=== PATIENT | male | born 1965 | race African-American/Black ===

== ENCOUNTER 2019-04-03 23:04 | Emergency (ER) | payer OTHER ==
[2019-04-03 23:23] VITALS: BP 152/71; PULSE 74; TEMP 98.7; BMI 38.9
[2019-04-03] MEDS ORDERED: DIPHTH,PERTUSS(ACELL),TET 0.5 ML DISP.SYRIN IM ONE (23:41)
[2019-04-03] MEDS ORDERED: CLINDAMYCIN HCL 150 MG CAPSULE (FP) PO ONE (23:56)
--- NOTE | 2019-04-04 00:16 | PDOC ---
History of Present Illness - General Chief Complaint: Wound Stated Complaint: LACERATION ON LT. LEG Time Seen by Provider: 04/03/19 23:25 History Source: Patient Exam Limitations: No Limitations - History of Present Illness Initial Comments: HPI: 53 y/o male presenting to [facility] ER complaining of laceration to left leg sustained while cutting drywall with metal insert. Did not seek medical evaluation. Attempted to keep the wound clean with bandages and neosporin. Scab was dislodged yesterday and purulent material was expressed. Pt endorses redness surrounding the area without streaking. Denies fevers, chills, or difficulty moving the extremity. Medical Hx: - HTN - HLD Review of Systems: In addition to that documented in the HPI above, the additional ROS was obtained : Constitutional: Denies fevers or chills ENMT: Denies sore throat CV: Denies chest pain Resp: Denies SOB GI: Denies vomiting or diarrhea Trauma: Per HPI Physical Examination: Constitutional: Well-developed, well-nourished adult male in no acute distress or obvious discomfort. Found semi-fowlers on hospital bed. Alert and oriented x4. Answered all questions appropriately and completely. Speech was non-labored , non-pressured. Head: Normocephalic. No obvious external signs of trauma. Cardiovascular / Chest: Regular rate and regular rhythm. No murmur, rubs, clicks , or gallops. Peripheral pulses: radial pulses full. Respiratory: Breathing unlabored. Equal chest rise and fall. Clear to auscultation bilaterally. No stridor, no wheezing, no rhonchi. Neuro: Alert and oriented. Moving all four extremities spontaneously. Gait normal. Skin: Approx. 3cm partial thickness laceration to medial aspect of left leg with small amount of devitalized tissue. No purulent discharge expressed. Erythema with warmth surrounding the wound without lymphatic streaking. No fluctuation or induration. Psych: Affect: appropriate. Mood: normal. MDM: *Reviewed vital signs, nursing notes, and prior visit documentation (if available). 53 y/o male presenting almost two weeks s/p laceration to left leg. Wound expressed possible purulent discharge yesterday. Denies systemic infectious symptoms. Not a diabetic. No h/o of poor wound healing. Afebrile. Vitals unremarkable for hypotension or tachycardia. Physical exam as described above. Suspect localized cellulitis without abscess. Plain films unremarkable for foreign body per ED wet read. Radiology report to follow. Devitalized tissue trimmed and wound irrigated. Covered with clean and dry dressing. Prescribed 10 day course of clindamycin. First dose given in ED. Instructed to f/u with Dr. Grayson in clinic. Discussed imaging and laboratory results with pt. Answered all questions. Provided return precautions. Pt expressed verbal understanding and agreement with plan to discharge home with outpatient follow up. Jeff Watts M.D., PGY2 Emergency Medicine Resident Past History - Past Medical History Allergies/Adverse Reactions: Allergies Allergy/AdvReac Type Severity Reaction Status Date / Time No Known Drug Allergies Allergy Verified 04/03/19 23:22 Home Medications: Ambulatory Orders Amlodipine Besylate [Norvasc -] 10 mg PO DAILY 11/27/14 Hydrochlorothiazide [Hctz -] 12.5 mg PO DAILY 11/27/14 Ibuprofen [Motrin -] 400 mg PO QID PRN 12/10/14 Oxycodone HCl/Acetaminophen [Percocet 5-325 mg Tablet] 1 - 2 tab PO Q6H #60 tablet 12/10/14 Clindamycin [Cleocin -] 450 mg PO Q8H 10 Days #90 capsule 04/04/19 Anemia: No Asthma: No Cancer: No Cardiac Disorders: No CVA: No COPD: No CHF: No Dementia: No Diabetes: No GI Disorders: No Disorders: No HTN: Yes Hypercholesterolemia: No Liver Disease: No Seizures: No Thyroid Disease: No - Suicide/Smoking/Psychosocial Hx Smoking Status: Yes Smoking History: Former smoker Have you smoked in the past 12 months: No Number of Cigarettes Smoked Daily: 7 Cigars Per Day: 1 Information on smoking cessation initiated: No 'Breaking Loose' booklet given: 12/05/14 Hx Alcohol Use: No Drug/Substance Use Hx: No Substance Use Type: Alcohol Hx Substance Use Treatment: No *Physical Exam - Vital Signs Last Vital Signs Temp Pulse Resp BP Pulse Ox 98.7 F 74 19 152/71 100 04/03/19 23:19 04/03/19 23:19 04/03/19 23:19 04/03/19 23:19 04/03/19 23:19 ED Treatment Course - RADIOLOGY Radiology Studies Ordered: Category Date Time Status LEG TIB/FIB-LEFT [RAD] Stat Radiology 04/03/19 23:41 Ordered - Medications Given in the ED: ED Medications Discontinued Medications Generic Name Dose Route Start Last Admin Trade Name Marvin PRN Reason Stop Dose Admin Clindamycin HCl 450 mg 04/03/19 23:56 04/04/19 00:06 Cleocin - PO 04/03/19 23:57 450 mg ONCE ONE Administration Diphtheria/Tetanus/Acell Pertussis 0.5 ml 04/03/19 23:41 04/04/19 00:01 Boostrix - IM 04/03/19 23:42 0.5 ml .ONCE ONE Administration *DC/Admit/Observation/Transfer Diagnosis at time of Disposition: Laceration of left lower leg Qualifiers: Encounter type: initial encounter Qualified Code(s): S81.812A - Laceration without foreign body, left lower leg, initial encounter Cellulitis Qualifiers: Site of cellulitis: extremity Site of cellulitis of extremity: lower extremity Laterality: left Qualified Code(s): L03.116 - Cellulitis of left lower limb - Discharge Dispostion Disposition: HOME Condition at time of disposition: Improved Decision to Admit order: No - Prescriptions Prescriptions: Clindamycin [Cleocin -] 450 mg PO Q8H 10 Days #90 capsule - Referrals Referrals: Ricky Hobbs MD [Primary Care Provider] - Brandon Grayson MD [Staff Physician] - - Patient Instructions Printed Discharge Instructions: DI for Cellulitis -- Adult Additional Instructions: You were seen today for a wound to your leg. The area looks like it has a skin infection surrounding it. The xray did not show any foreign bodies. You were given a dose of an antibiotic called Clindamycin. I have sent a prescription for Clindamycin to your pharmacy. Take as directed on the package insert. Do not exceed the recommended dosage. You need to follow up with a surgeon or your primary care doctor. I have placed a referral for you to see Dr. Grayson. You will need to call to make an appointment. The number is included in this packet. Go to the nearest emergency department if your condition worsens or you feel like you need additional emergency evaluation. Print Language: SRI LANKAN - Post Discharge Activity Forms/Work/School Notes: Back to Work
--- NOTE | 2019-04-04 00:58 | PDOC ---
Documentation entered by Elmira Galindo SCRIBE, acting as scribe for Brigette Huitron DO. Brigette Huitron DO: This documentation has been prepared by the Josie pearl Adrianna, SCRIBE, under my direction and personally reviewed by me in its entirety. I confirm that the documentation accurately reflects all work, treatment, procedures, and medical decision making performed by me. Attending Attestation - Resident Resident Name: Jeff Watts - ED Attending Attestation I have performed the following: I have examined & evaluated the patient, The case was reviewed & discussed with the resident, I agree w/resident's findings & plan, Exceptions are as noted - HPI HPI: The patient is a 53 year old male, with no significant PMH, who presents to the ED for evaluation of wound to the left lower extremity. Patient reports cutting his leg on metal 11 days ago, and did not seek any medical treatment at that time. He notes he was caring for the wound on his own, and a scab began to form yesterday. He notes that today the scab opened and the wound began to drain. Denies numbness or tingling of the LLE. Allergies: Surgical History: Social History: Former smoker. Denies EtOH or illicit drug use PCP: Dr. Hobbs - Physicial Exam PE: Constitutional: Awake, alert, oriented. No acute distress. Head: Normocephalic. Atraumatic Eyes: PERRL. EOMI. Conjunctivae are not pale. ENT: Mucous membranes are moist and intact. Posterior pharynx without exudates or erythema. Uvula midline. Neck: Supple. Full ROM. No lymphadenopathy. Cardiovascular: Regular rate. Regular rhythm. S1, S2 regular. Distal pulses are 2+ and symmetric. Pulmonary/Chest: No evidence of respiratory distress. Clear to auscultation bilaterally No wheezing, rales or rhonchi. Abdominal: Soft and nondistended. There is no tenderness. No rebound, guarding or rigidity. No organomegaly. No palpable masses. Good bowel sounds. Back: No CVA tenderness. Musculoskeletal: +3cm laceration to the medial aspect of the left calf with granulation tissue, erythema, and warmth to touch. No purulent drainage, but laceration has some degranulated tissue as it is healing. Nothing is expressed when pinching. Healing from secondary intention. No edema. No cyanosis. No clubbing. Full range of motion in all extremities. No calf tenderness. Radial/ pedal pulses are intact and 2+ bilaterally Skin: +3cm laceration to the medial aspect of the left calf with granulation tissue, erythema, and warmth to touch. No purulent drainage, but laceration has some degranulated tissue as it is healing. Nothing is expressed when pinching. Healing from secondary intention. Skin is warm and dry. No petechiae. Neurological: Alert and oriented to person, place, and time. Cranial nerves II -XII are grossly intact. Normal speech. Strength is grossly symmetric. No sensory deficits. Psychiatric: Good eye contact. Normal interaction, affect and behavior. - Medical Decision Making 04/04/19 00:56 I, Dr. Brigette Huitron, DO, attest that this document has been prepared under my direction and personally reviewed by me in its entirety. I further attest, that it accurately reflects all work, treatment, procedures and medical decision -making performed by me. 04/04/19 00:56 a/p: 53yo male with injury/lac to L medial calf a week ago -pt states cut on chicken wire -unsure last tetanus vaccine -pt with granulation tissue and white discharge from the wound along with surrounding erythema -will update tetanus -will need oral abx -will need xray -pt states he washed the wound at home after the injury because there was also sheet rock around -states he was trying to keep it dry -pt with signs of healing by secondary intention -will monitor, wash out wound, and reassess 04/04/19 01:34 xray reviewed no free air no foreign body visualized will wash out wound locally and provide local wound care will dc with oral abx
== END 2019-04-04 02:29 | disposition home or self-care (01) ==
LOC: JER 23:04
PROC: 3E0234Z Introduction of Serum, Toxoid and Vaccine into Muscle, Percutaneous Approach (ICD-10-PCS; principal; 2019-04-03)
DX: S81.812A Laceration without foreign body, left lower leg, initial encounter (principal); L03.116 Cellulitis of left lower limb; Z87.891 Personal history of nicotine dependence
CPT/HCPCS: 73590-TC-LT-FY; 90715; 99282-25

== ENCOUNTER 2019-10-07 17:59 | Emergency (ER) | payer OTHER ==
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
[2019-10-07 18:13] VITALS: BP 149/89; PULSE 72; TEMP 98.4; BMI 40.4
[2019-10-07] MEDS ORDERED: METHOCARBAMOL 500 MG TABLET PO ONE (18:42)
[2019-10-07] MEDS ORDERED: KETOROLAC TROMETHAMINE 30 MG/1 ML VIAL IM ONE (18:42)
[2019-10-07] MEDS ORDERED: KETOROLAC TROMETHAMINE 30 MG/1 ML VIAL ONE (18:45)
[2019-10-07] MEDS ORDERED: METHOCARBAMOL 500 MG TABLET ONE (18:46)
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
== END 2019-10-07 18:58 | disposition home or self-care (01) ==
LOC: JERFT 17:59
DX: M25.512 Pain in left shoulder (principal); M54.5 Low back pain; V43.52XA Car driver injured in collision with other type car in traffic accident, initial encounter; Y92.414 Local residential or business street as the place of occurrence of the external cause; Y93.89 Activity, other specified; Y99.8 Other external cause status; I10 Essential (primary) hypertension
CPT/HCPCS: 99281-25

== ENCOUNTER 2020-03-26 13:47 | Inpatient (IN) | payer OTHER ==
[2020-03-26] MEDS ORDERED: ASPIRIN 81 MG CHEWABLE TABLETS PO ONE (14:01)
--- NOTE | 2020-03-26 14:01 | PDOC ---
Rapid Medical Evaluation Time Seen by Provider: 03/26/20 13:52 Medical Evaluation: Allergies Allergy/AdvReac Type Severity Reaction Status Date / Time No Known Drug Allergies Allergy Verified 04/03/19 23:22 03/26/20 13:53 I have performed a brief in-person evaluation of this patient. CC: Right sided chest pain radiating to flank. PE: Lungs CTAB. RRR. No m/r/g. No chest tenderness. Orders: Cardiac w/u Patient will proceed to ED for further evaluation. 03/26/20 14:02 Discharge Disposition - Diagnosis Chest pain - Referrals - Patient Instructions - Post Discharge Activity
[2020-03-26] MEDS ORDERED: ASPIRIN 81 MG CHEWABLE TABLETS ONE (14:58)
[2020-03-26 15:09] LABS: BASO % 2.5 % (0-2.0); EOS % 2.7 % (0-4.5); HEMATOCRIT 50.5 % (35.4-49); HEMOGLOBIN 16.2 GM/dL (11.7-16.9); LYMPH % 42.8 % (8-40); MCH 28.2 pg (25.7-33.7); MCHC 32.1 g/dl (32.0-35.9); MEAN CELL VOLUME 87.7 fl (80-96); MEAN PLT VOLUME 8.2 fl (7.5-11.1); MONO % 4.7 % (3.8-10.2); NEUT % 47.3 % (42.8-82.8); PLATELET COUNT 263 K/MM3 (134-434); RBC 5.76 M/mm3 (4.00-5.60); RDW 14.2 % (11.9-15.9); WHITE BLOOD COUNT 12.8 K/mm3 (4.0-10.0)
[2020-03-26 15:16] LABS: INR 0.92 (0.83-1.09); PROTHROMBIN TIME (PATIENT) 10.8 SEC (9.7-13.0)
[2020-03-26 15:19] LABS: ACTIVATED PTT 30.2 SECONDS (25.2-36.5)
[2020-03-26 15:41] LABS: ALBUMIN 3.8 g/dl (3.4-5.0); BILIRUBIN,TOTAL 0.2 mg/dL (0.2-1); CALCIUM 9.3 mg/dL (8.5-10.1); CREATININE 1.3 mg/dL (0.55-1.3); MAGNESIUM 1.9 mg/dL (1.8-2.4); POTASSIUM 4.3 mmol/L (3.5-5.1); TOT PROT 7.1 g/dl (6.4-8.2)
--- NOTE | 2020-03-26 15:46 | PDOC ---
History of Present Illness - General Chief Complaint: Chest Pain Stated Complaint: CHEST PAIN Time Seen by Provider: 03/26/20 13:52 - History of Present Illness Initial Comments: HPI: 54yo M with PMH of HTN, HLD sent by his primary care physician for evaluation of chest pain. Patient reports that he has had chest pain on the right side of his chest for one week. The pain worsens if he moves, and gets better if he stays still. No nausea, vomiting, or diaphoresis. The pain radiates around the right side to his back. Has seen a type caster in the past but is unsure if he has ever had a stress test. His primary care physician was concerned about EKG changes and sent him to the ED. Patient denies shortness of breath or cough. No hemoptysis, no recent surgical history, no recent immobilization, no hormone use, no history of DVT or PE. Denies fever or chills. PCP: Dr. Ricky Hobbs ROS: Constitutional: no fever, no chills HEENT: no throat pain, no dysphagia Cardiovascular: +chest pain, no palpitations Respiratory: no cough, no shortness of breath Gastrointestinal: no abdominal pain, no nausea Genitourinary: no dysuria, no hematuria Musculoskeletal: no myalgia, no arthralgia Skin: no rash, no itching Neurologic: no headache, no weakness Psych: no agitation, no anxiety PE: General: Awake, alert, and fully oriented, in no acute distress Head: No signs of trauma Eyes: EOMI, sclera anicteric ENT: Moist mucus membranes Neck: Normal ROM, supple Lungs: Lungs clear, Normal breath sounds Cardio: Regular rhythm, S1 and S2 present Abdomen: Soft, nondistended. Mild epigastric/RUQ tenderness to palpation Extremities: Normal range of motion, Distal pulses present Skin: Warm, Dry, normal turgor Neurologic: Cranial nerves II through XII grossly intact. Normal speech ED Course/MDM: DDX including but not limited to ACS, PE, PNA, anemia, metabolic derangement, COVID-19 Labs, EKG, CXR Aspirin Patient is PERC 1 due to age WELLS 0; I have low suspicion for PE EKG: rate 67, QTc 416, NSR, twi in V5 and V6, no prior EKGs to compare 03/26/20 15:32 CBC WBC 12.8 K/mm3 (4.0-10.0) H 03/26/20 14:50 RBC 5.76 M/mm3 (4.00-5.60) H 03/26/20 14:50 Hgb 16.2 GM/dL (11.7-16.9) 03/26/20 14:50 Hct 50.5 % (35.4-49) H 03/26/20 14:50 MCV 87.7 fl (80-96) 03/26/20 14:50 MCH 28.2 pg (25.7-33.7) 03/26/20 14:50 MCHC 32.1 g/dl (32.0-35.9) 03/26/20 14:50 RDW 14.2 % (11.9-15.9) 03/26/20 14:50 Plt Count 263 K/MM3 (134-434) 03/26/20 14:50 MPV 8.2 fl (7.5-11.1) 03/26/20 14:50 Absolute Neuts (auto) 6.1 K/mm3 (1.5-8.0) 03/26/20 14:50 Neutrophils % 47.3 % (42.8-82.8) 03/26/20 14:50 Lymphocytes % 42.8 % (8-40) H 03/26/20 14:50 Monocytes % 4.7 % (3.8-10.2) 03/26/20 14:50 Eosinophils % 2.7 % (0-4.5) 03/26/20 14:50 Basophils % 2.5 % (0-2.0) H 03/26/20 14:50 Nucleated RBC % 0 % (0-0) 03/26/20 14:50 Mild leukocytosis No anemia CMP Sodium 144 mmol/L (136-145) 03/26/20 14:39 Potassium 4.3 mmol/L (3.5-5.1) 03/26/20 14:39 Chloride 112 mmol/L (98-107) H 03/26/20 14:39 Carbon Dioxide 25 mmol/L (21-32) 03/26/20 14:39 Anion Gap 7 MMOL/L (8-16) L 03/26/20 14:39 BUN 14.0 mg/dL (7-18) 03/26/20 14:39 Creatinine 1.3 mg/dL (0.55-1.3) 03/26/20 14:39 Est GFR (CKD-EPI)AfAm 71.69 03/26/20 14:39 Est GFR (CKD-EPI)NonAf 61.86 03/26/20 14:39 Random Glucose 89 mg/dL (74-106) 03/26/20 14:39 Calcium 9.3 mg/dL (8.5-10.1) 03/26/20 14:39 Magnesium 1.9 mg/dL (1.8-2.4) 03/26/20 14:39 Total Bilirubin 0.2 mg/dL (0.2-1) 03/26/20 14:39 AST 18 U/L (15-37) 03/26/20 14:39 ALT 56 U/L (13-61) 03/26/20 14:39 Alkaline Phosphatase 74 U/L (45-117) 03/26/20 14:39 Creatine Kinase 326 U/L (26-308) H 03/26/20 14:39 Creatine Kinase Index 1.2 % (0.0-5.0) 03/26/20 14:39 CK-MB (CK-2) 4.2 ng/mL (0.5-3.6) H 03/26/20 14:39 Troponin I 0.04 ng/ml (0.00-0.05) 03/26/20 14:39 Total Protein 7.1 g/dl (6.4-8.2) 03/26/20 14:39 Albumin 3.8 g/dl (3.4-5.0) 03/26/20 14:39 Lipase 134 U/L (73-393) 03/26/20 14:39 Electrolytes unremakrable Cr normal No transaminitis CK mildly elevated Tpn undetecatable Lipase normal Plan for admission Awaiting callback 03/26/20 16:[address] Bautista who accepted patient for telemetry observation 03/26/20 17:38 CXR as reported by radiology: "There are no prior studies for comparison. There are excessive soft tissues, normal heart, unfolded aorta and normal alex. The some coarse lung changes but no sign of infiltrate or failure. The angles are sharp. Significant arthritic changes are not seen. Impression: Excessive soft tissues. No acute chest pathology. Reported By: Kuldip Armas MD 03/27/20 0813 " Past History - Medical History Allergies/Adverse Reactions: Allergies Allergy/AdvReac Type Severity Reaction Status Date / Time No Known Drug Allergies Allergy Verified 03/26/20 13:59 Home Medications: Ambulatory Orders Amlodipine Besylate [Norvasc -] 10 mg PO DAILY 11/27/14 Hydrochlorothiazide [Hctz -] 12.5 mg PO DAILY 11/27/14 Aspirin Coated [Ecotrin -] 81 mg PO DAILY #30 tablet.ec 03/28/20 Atorvastatin Ca [Lipitor] 40 mg PO HS #30 tablet 03/28/20 Lisinopril [Prinivil] 10 mg PO DAILY #30 tablet 03/28/20 Anemia: No Asthma: No Cancer: No Cardiac Disorders: No CVA: No COPD: No CHF: No Dementia: No Diabetes: No GI Disorders: No Disorders: No HTN: Yes Hypercholesterolemia: No Liver Disease: No Seizures: No Thyroid Disease: No - Immunization History Immunization Up to Date: No - Psycho-Social/Smoking History Smoking Status: Yes Smoking History: Never smoked Have you smoked in the past 12 months: No Number of Cigarettes Smoked Daily: 7 Cigars Per Day: 1 Information on smoking cessation initiated: No 'Breaking Loose' booklet given: 12/05/14 - Substance Abuse Hx (Audit-C & DAST Scrn) How often the patient has a drink containing alcohol: Never Score: In Men: 4 or > Positive; In Women: 3 or > Positive: 0 Screen Result (Pos requires Nsg. Audit-10AR): Negative In the last yr the pt used illegal drug/Rx for NonMed reason: No Score: Yes response is considered Positive: 0 Screen Result (Positive result requires Nsg. DAST-10): Negative *Physical Exam - Vital Signs Last Vital Signs Temp Pulse Resp BP Pulse Ox 98.4 F 63 20 126/71 99 03/26/20 13:49 03/26/20 13:49 03/26/20 13:49 03/26/20 13:49 03/26/20 13:49 Heart Score/ECG Review - History History: Slightly suspicious - Electrocardiogram EKG: Non specific repolarization disturbance - Age Age: 45-65 - Risk Factors Risk Factors Heart Score: Yes Hx Hypercholesterolemia, Yes Hx Hypertension, Yes Hx Obesity Based on the list above the patient has:: >/=3 risk factors or Hx atherosclerotic disease - Troponin Troponin: </= normal limit - Score Heart Score - Total: 4 ED Treatment Course - LABORATORY CBC & Chemistry Diagram: 03/27/20 06:58 03/27/20 06:58 - ADDITIONAL ORDERS Additional order review: Laboratory Results 03/26/20 14:50 PT with INR 10.80 INR 0.92 PTT (Actin FS) 30.2 03/26/20 14:50 RBC 5.76 H MCV 87.7 MCHC 32.1 RDW 14.2 MPV 8.2 Neutrophils % 47.3 Lymphocytes % 42.8 H Monocytes % 4.7 Eosinophils % 2.7 Basophils % 2.5 H - Medications Given in the ED: ED Medications Discontinued Medications Generic Name Dose Route Start Last Admin Trade Name Freq PRN Reason Stop Dose Admin Aspirin 162 mg 03/26/20 14:01 03/26/20 14:56 Asa - PO 03/26/20 14:02 162 mg ONCE ONE Administration Discharge - Discharge Information Problems reviewed: Yes Clinical Impression/Diagnosis: Chest pain Qualifiers: Chest pain type: unspecified Qualified Code(s): R07.9 - Chest pain, unspecified Condition: Good Disposition: HOME - Admission Yes - Follow up/Referral - Patient Discharge Instructions - Post Discharge Activity
--- NOTE | 2020-03-26 16:20 | PDOC ---
Documentation entered by Samira Galindo SCRIBE, acting as scribe for Liat White MD. Liat White MD: This documentation has been prepared by the Josie pearl Brenda, SCRIBE, under my direction and personally reviewed by me in its entirety. I confirm that the documentation accurately reflects all work, treatment, procedures, and medical decision making performed by me. Attending Attestation - Resident Resident Name: Rayray Elizaldeth - ED Attending Attestation I have performed the following: I have examined & evaluated the patient, The case was reviewed & discussed with the resident, I agree w/resident's findings & plan, Exceptions are as noted - HPI HPI: 03/26/20 15:57 The patient is a 54 year old male with a significant PMH of HTN and HLD who presents to the ED, sent by PCP for evaluation of EKG changes and 1 week of right sided chest pain. Patient notes aggravation of pain upon movement and alleviation upon relaxation. He notes that the pain radiates to the right side of his back. The patient denies shortness of breath or cough. Denies any Hx of DVT. Allergies: NKA - Physicial Exam PE: 03/26/20 16:09 GENERAL: Awake, alert, and fully oriented, in no acute distress LUNGS: Breath sounds equal, clear to auscultation bilaterally. No wheezes, and no crackles HEART: Regular rate and rhythm, normal S1 and S2, no murmurs, rubs or gallops ABDOMEN: Soft, nontender, normoactive bowel sounds. No guarding, no rebound. No masses EXTREMITIES: Normal range of motion, no edema. No clubbing or cyanosis. No cords, erythema, or tenderness NEUROLOGICAL: Cranial nerves II through XII grossly intact. Normal speech, normal gait SKIN: Warm, Dry, normal turgor, no rashes or lesions noted. - Medical Decision Making 03/26/20 16:15 Pt presents to the ED complaining of substernal chest pain that has been persistent for one week and was worse today. EKG shows hyperacute t wave in v 3 and inverted t wave in v5 and 6. Concern for ACS, muscular chest pain, unlikely dissection or PE. Labs show troponin of 0.04. Will admit to medicine for rule out acs. Discharge - Discharge Information Problems reviewed: Yes Clinical Impression/Diagnosis: Chest pain Condition: Good Disposition: HOME - Follow up/Referral - Patient Discharge Instructions - Post Discharge Activity
[2020-03-27 00:01] VITALS: BMI 39.4
--- NOTE | 2020-03-27 07:07 | CON.CARD ---
Consult Consult Specialty:: cardiology Reason for Consultation:: aytpical chest pain; elevated TNI - History of Present Illness History of Present Illness: The patient is a 54 year old male with a significant PMH of HTN, HLD, obesity, who presents to the ED, sent by PCP for evaluation of EKG changes and 1 week of right sided chest pain. Patient notes aggravation of pain upon movement and alleviation upon relaxation. He notes that the pain radiates to the right side of his back. The patient denies shortness of breath or cough. Denies any Hx of DVT. Allergies: NKA - History Source History Provided By: Medical Record - Alcohol/Substance Use Hx Alcohol Use: No - Smoking History Smoking history: Never smoked Have you smoked in the past 12 months: No Aproximately how many cigarettes per day: 7 Home Medications - Allergies Allergies/Adverse Reactions: Allergies Allergy/AdvReac Type Severity Reaction Status Date / Time No Known Drug Allergies Allergy Verified 03/26/20 13:59 - Home Medications Home Medications: Ambulatory Orders Amlodipine Besylate [Norvasc -] 10 mg PO DAILY 11/27/14 Hydrochlorothiazide [Hctz -] 12.5 mg PO DAILY 11/27/14 Ibuprofen [Motrin -] 400 mg PO QID PRN 12/10/14 Oxycodone HCl/Acetaminophen [Percocet 5-325 mg Tablet] 1 - 2 tab PO Q6H #60 tablet 12/10/14 Clindamycin [Cleocin -] 450 mg PO Q8H 10 Days #90 capsule 04/04/19 Methocarbamol [Robaxin -] 500 mg PO BID PRN #14 tablet 10/07/19 Naproxen 500 mg PO BID PRN #20 tablet 10/07/19 Vital Signs: Vital Signs Temperature 97.5 F L 03/27/20 02:00 Pulse Rate 61 03/27/20 02:00 Respiratory Rate 18 03/27/20 02:00 Blood Pressure 161/69 03/27/20 02:00 O2 Sat by Pulse Oximetry (%) 95 03/27/20 02:00 - Other Data Labs, Other Data: CBC, BMP 03/26/20 14:50 03/26/20 14:39 INR, PTT INR 0.92 (0.83-1.09) 03/26/20 14:50 Troponin, BNP 03/26/20 03/26/20 14:39 23:35 Troponin I 0.04 0.05 Troponin, BNP 03/26/20 03/26/20 14:39 23:35 Troponin I 0.04 0.05 Assessment/Plan Atypical hest pain Reported EKG changes as outpatient Mildly elevated TNi HTN hyperlipidemia obesity Plan: On ASA Serial TNi and EKG Telemetry Lipid profile; TSH. Will attempt to contact pt's quill skinner; plan for stress MIBI if TNi is not increasing, EKG without acute changes, and no recent stress test or other exam for coronary artery evaluation.
[2020-03-27 08:13] LABS: BASO % 1.4 % (0-2.0); EOS % 3.8 % (0-4.5); HEMATOCRIT 47.8 % (35.4-49); HEMOGLOBIN 15.1 GM/dL (11.7-16.9); LYMPH % 41.5 % (8-40); MCH 27.8 pg (25.7-33.7); MCHC 31.7 g/dl (32.0-35.9); MEAN CELL VOLUME 87.8 fl (80-96); MEAN PLT VOLUME 8.3 fl (7.5-11.1); MONO % 6.6 % (3.8-10.2); NEUT % 46.7 % (42.8-82.8); PLATELET COUNT 240 K/MM3 (134-434); RBC 5.44 M/mm3 (4.00-5.60); RDW 14.5 % (11.9-15.9); WHITE BLOOD COUNT 10.3 K/mm3 (4.0-10.0)
[2020-03-27 08:50] LABS: ALBUMIN 3.4 g/dl (3.4-5.0); BILIRUBIN,TOTAL 0.2 mg/dL (0.2-1); BLOOD UREA NITROGEN 16.5 mg/dL (7-18); CALCIUM 8.8 mg/dL (8.5-10.1); CREATININE 1.2 mg/dL (0.55-1.3); POTASSIUM 4.4 mmol/L (3.5-5.1); TOT PROT 6.3 g/dl (6.4-8.2)
--- NOTE | 2020-03-27 09:49 | PN ---
Progress Note, Physician History of Present Illness: The patient is a 54 year old male with a significant PMH of HTN, HLD, obesity, who presents to the ED, sent by PCP for evaluation of EKG changes and 1 week of right sided chest pain. Patient notes aggravation of pain upon movement and alleviation upon relaxation. He notes that the pain radiates to the right side of his back. The patient denies shortness of breath or cough. Denies any Hx of DVT. Allergies: NKA - Current Medication List Current Medications: Active Medications Amlodipine Besylate (Norvasc -) 10 mg PO DAILY CATHERINE Aspirin (Ecotrin -) 81 mg PO DAILY CATHERINE Hydrochlorothiazide (Hctz -) 12.5 mg PO DAILY CATHERINE - Objective Vital Signs: Vital Signs Temperature 97.6 F 03/27/20 06:00 Pulse Rate 62 03/27/20 06:00 Respiratory Rate 18 03/27/20 06:00 Blood Pressure 157/89 03/27/20 06:00 O2 Sat by Pulse Oximetry (%) 98 03/27/20 06:00 Labs: CBC, BMP 03/27/20 06:58 03/27/20 06:58 INR, PTT INR 0.92 (0.83-1.09) 03/26/20 14:50 Assessment/Plan Atypical chest pain EKG changes Mildly elevated TNi HTN hyperlipidemia obesity Plan: Ad Lisinopril for better BP control On ASA Serial TNi and EKG Telemetry Lipitor. MIBI st as inpatient
--- NOTE | 2020-03-27 10:34 | EKG ---
Test Reason : Blood Pressure : / mmHG Vent. Rate : 058 BPM Atrial Rate : 058 BPM P-R Int : 154 ms QRS Dur : 098 ms QT Int : 412 ms P-R-T Axes : 038 -14 -10 degrees QTc Int : 404 ms SINUS BRADYCARDIA POSSIBLE LEFT ATRIAL ENLARGEMENT LEFT VENTRICULAR HYPERTROPHY CANNOT RULE OUT INFERIOR INFARCT , AGE UNDETERMINED NONSPECIFIC T WAVE ABNORMALITY ABNORMAL ECG WHEN COMPARED WITH ECG OF 26-MAR-2020 13:50, NO SIGNIFICANT CHANGE WAS FOUND Confirmed by SHAKEEL LOPEZ MD ([id number]) on 03/27/2020 10:34:23 AM Referred By: Confirmed By:SHAKEEL LOPEZ MD
--- NOTE | 2020-03-27 10:36 | EKG ---
Test Reason : Blood Pressure : / mmHG Vent. Rate : 067 BPM Atrial Rate : 067 BPM P-R Int : 146 ms QRS Dur : 098 ms QT Int : 394 ms P-R-T Axes : 040 -06 062 degrees QTc Int : 416 ms NORMAL SINUS RHYTHM POSSIBLE LEFT ATRIAL ENLARGEMENT LEFT VENTRICULAR HYPERTROPHY INFERIOR INFARCT , AGE UNDETERMINED T WAVE ABNORMALITY, CONSIDER LATERAL ISCHEMIA ABNORMAL ECG NO PREVIOUS ECGS AVAILABLE Confirmed by SHAKEEL LOPEZ MD ([id number]) on 03/27/2020 10:35:50 AM Referred By: Confirmed By:SHAKEEL LOPEZ MD
--- NOTE | 2020-03-27 11:23 | ECHO ---
Version: 1 Name: TIERNEY GANDHI Exam: Adult Echocardiogram Study Date: 03/27/2020, 10:47 AM Age: 54 Years MMode/2D Measurements & Calculations IVSd: 1.58 cm LVIDs: 3.1 cm LVIDd: 4.2 cm LVPWd: 1.60 cm LAV (MOD-bp): 51.4 ml LVOT diam: 1.99 cm Ao root diam: 3.1 cm LA dimension: 3.3 cm Doppler Measurements & Calculations MV E max nael: 78.3 cm/sec Med E/e': 12.9 MV A max nael: 85.5 cm/sec Med Peak E' Nael: 6.1 cm/sec MV E/A: 0.92 Lat E/e': 11.4 Lat Peak E' Nael: 6.9 cm/sec Ao max P.1 mmHg Ao V2 max: 142.5 cm/sec Procedure The study was technically difficult with many images being suboptimal in quality. Left Ventricle There is mild concentric left ventricular hypertrophy. Left ventricular systolic function is grossly normal. Ejection Fraction = 55-60%. Regional wall motion abnormalities cannot be excluded due to limited visualization. Right Ventricle The right ventricle is grossly normal size. The right ventricular systolic function is grossly clarita l. Atria Normal left and right atrial size and function. Mitral Valve The mitral valve is normal in structure and function. There is no mitral valve stenosis. There is mi ld mitral regurgitation. Tricuspid Valve The tricuspid valve is normal in structure and function. There is mild tricuspid regurgitation. Aortic Valve The aortic valve is not well visualized. No hemodynamically significant valvular aortic stenosis. Pulmonic Valve The pulmonic valve is not well seen, but is grossly normal. There is no pulmonic valvular stenosis. Great Vessels The aortic root is normal size. Pericardium/Pleura There is no pericardial effusion. Summary Statements The study was technically difficult with many images being suboptimal in quality. Regional wall motion abnormalities cannot be excluded due to limited visualization. Left ventricular systolic function is grossly normal. There is mild mitral regurgitation. There is mild tricuspid regurgitation. MD Fisher *Philippe 03/27/2020, 11:22 AM Ordering Physician: Mayra Bautista Performed By: Ailyn Rangel
[2020-03-27] MEDS: amLODIPine BESYLATE 10 MG TABLET (FP) PO SCH (11:27)
[2020-03-27] MEDS: ASPIRIN COATED 81 MG TABLET.EC PO SCH (11:27)
[2020-03-27] MEDS: HYDROCHLOROTHIAZIDE 12.5 MG CAPSULE (FP) PO SCH (11:27)
--- NOTE | 2020-03-27 13:31 | HP ---
Admitting History and Physical - Smoking History Smoking history: Never smoked Have you smoked in the past 12 months: No Aproximately how many cigarettes per day: 7 - Alcohol/Substance Use Hx Alcohol Use: No Home Medications - Allergies Allergies/Adverse Reactions: Allergies Allergy/AdvReac Type Severity Reaction Status Date / Time No Known Drug Allergies Allergy Verified 03/26/20 13:59 - Home Medications Home Medications: Ambulatory Orders Amlodipine Besylate [Norvasc -] 10 mg PO DAILY 11/27/14 Hydrochlorothiazide [Hctz -] 12.5 mg PO DAILY 11/27/14 Aspirin Coated [Ecotrin -] 81 mg PO DAILY #30 tablet.ec 03/28/20 Atorvastatin Ca [Lipitor] 40 mg PO HS #30 tablet 03/28/20 Lisinopril [Prinivil] 10 mg PO DAILY #30 tablet 03/28/20 Physical Examination Vital Signs: Vital Signs Temperature 97.6 F 03/27/20 10:00 Pulse Rate 65 03/27/20 10:00 Respiratory Rate 18 03/27/20 10:00 Blood Pressure 140/96 03/27/20 10:00 O2 Sat by Pulse Oximetry (%) 95 03/27/20 09:00 Labs: CBC, BMP 03/27/20 06:58 03/27/20 06:58 Problem List - Problems (1) HTN (hypertension) Code(s): I10 - ESSENTIAL (PRIMARY) HYPERTENSION (2) HLD (hyperlipidemia) Code(s): E78.5 - HYPERLIPIDEMIA, UNSPECIFIED (3) Chest pain Code(s): R07.9 - CHEST PAIN, UNSPECIFIED Qualifiers: Chest pain type: unspecified Qualified Code(s): R07.9 - Chest pain, unspecified
[2020-03-27] MEDS: LISINOPRIL 10 MG TABLET (FP) PO SCH (15:59)
[2020-03-27] MEDS ORDERED: ATORVASTATIN CA 40 MG TABLET (FP) PO SCH (22:00)
--- NOTE | 2020-03-28 06:42 | PN ---
Progress Note (short form) - Note Progress Note: Coverage for Dr. Albert Souza Chief Complaint: Events noted, notes reviewed, denies any recurrent chest discomfort, denies any dyspnea, anxious to be discharged home to perform testing on outpatient basis History of Present Illness: Seen and examined on telemetry. Events noted, notes reviewed, denies any recurrent chest discomfort, denies any dyspnea, anxious to be discharged home to perform testing on outpatient basis Medications: Current Medications Generic Name Dose Route Start Last Admin Trade Name Marvin PRN Reason Stop Dose Admin Amlodipine Besylate 10 mg 03/27/20 10:00 03/28/20 10:05 Norvasc - PO 10 mg DAILY CATHERINE Administration Aspirin 81 mg 03/27/20 10:00 03/28/20 10:05 Ecotrin - PO 81 mg DAILY CATHERINE Administration Atorvastatin Calcium 40 mg 03/27/20 22:00 03/27/20 22:08 Lipitor - PO 40 mg HS CATHERINE Administration Hydrochlorothiazide 12.5 mg 03/27/20 10:00 03/28/20 10:04 Hctz - PO 12.5 mg DAILY CATHERINE Administration Lisinopril 10 mg 03/27/20 15:30 03/28/20 10:04 Prinivil PO 10 mg DAILY CATHERINE Administration Review of Systems Constitutional: denies Chills or Fever Respiratory: denies: Dyspnea Cardiovascular: As noted above Gastrointestinal: denies Nausea, Vomiting, Diarrhea or Constipation or Abdominal Discomfort Genitourinary: No Symptoms Reported Musculoskeletal: No Symptoms Reported Vital Signs: Last Vital Signs Temp Pulse Resp BP Pulse Ox 98.3 F 76 22 H 158/100 96 03/28/20 09:19 03/28/20 09:19 03/28/20 09:19 03/28/20 09:19 03/28/20 09:19 Intake & Output 03/25/20 03/26/20 03/27/20 03/28/20 23:59 23:59 23:59 23:59 Intake Total 380 Balance 380 Weight 237 lb 2 oz Neck: Supple Negative JVD Respiratory: Clear to auscultation percussion Cardiovascular: S1 S2 Regular Rate Rhythm Gastrointestinal: Soft Benign Normal Bowel Sounds Ext: Negative Edema Bilaterally Labs: CBC, BMP 03/27/20 06:58 03/27/20 06:58 Hepatic Panel Total Bilirubin 0.2 mg/dL (0.2-1) 03/27/20 06:58 AST 15 U/L (15-37) 03/27/20 06:58 ALT 46 U/L (13-61) 03/27/20 06:58 Alkaline Phosphatase 70 U/L (45-117) 03/27/20 06:58 Albumin 3.4 g/dl (3.4-5.0) 03/27/20 06:58 INR, PTT INR 0.92 (0.83-1.09) 03/26/20 14:50 Assessment/Plan ASSESSMENT: 1. Chest pain syndrome, clinical presentation of which is atypical for coronary artery disease angina pectoris negative cardiac biochemical markers for acute coronary syndrome 2. EKG abnormality most likely related to repolarization abnormality 3. Hypertensive cardiovascular disease 4. Hypercholesterolemia 5. Exogenous obesity PLAN: 1. Continue Norvasc therapy 2. Continue Lisinopril therapy 3. Continue Hydrochlorthiazide therapy 4. Recommend the addition of beta-henrik therapy unless it is absolutely contraindicated 5. Continue Lipitor therapy 6. Continue Ecotrin therapy 7. My opinion since patient is clinically stable on medical therapy and there is no evidence of acute coronary syndrome; further cardiovascular evaluation including myocardial perfusion imaging study can be performed on an outpatient basis Brayan Alvarez MD
[2020-03-28] MEDS: HYDROCHLOROTHIAZIDE 12.5 MG CAPSULE (FP) PO SCH (10:04)
[2020-03-28] MEDS: LISINOPRIL 10 MG TABLET (FP) PO SCH (10:04)
[2020-03-28] MEDS: amLODIPine BESYLATE 10 MG TABLET (FP) PO SCH (10:05)
[2020-03-28] MEDS: ASPIRIN COATED 81 MG TABLET.EC PO SCH (10:05)
--- NOTE | 2020-03-28 14:55 | EKG ---
Test Reason : Blood Pressure : / mmHG Vent. Rate : 068 BPM Atrial Rate : 068 BPM P-R Int : 150 ms QRS Dur : 100 ms QT Int : 396 ms P-R-T Axes : 051 -10 028 degrees QTc Int : 421 ms NORMAL SINUS RHYTHM POSSIBLE LEFT ATRIAL ENLARGEMENT LEFT VENTRICULAR HYPERTROPHY INFERIOR INFARCT (CITED ON OR BEFORE 26-MAR-2020) ABNORMAL ECG WHEN COMPARED WITH ECG OF 27-MAR-2020 10:03, NO SIGNIFICANT CHANGE WAS FOUND Confirmed by LIGIA LIGHT MD ([id number]) on 03/28/2020 2:55:25 PM Referred By: Ventura SPANN Confirmed By:LIGIA LIGHT MD
[2020-03-28 15:13] VITALS: BP 148/96; PULSE 69; TEMP 98.1
== END 2020-03-28 17:00 | disposition home or self-care (01) | DRG 203 ==
LOC: JER 13:47 → JERBED 16:18 → J4W 22:40 → OBSVTOIN 23:12
PROVIDERS: ADMIT Internal Medicine; ATTEND Internal Medicine
DX: R07.89 Other chest pain (principal); E78.5 Hyperlipidemia, unspecified; R94.31 Abnormal electrocardiogram [ECG] [EKG]; D72.829 Elevated white blood cell count, unspecified; F17.210 Nicotine dependence, cigarettes, uncomplicated; I10 Essential (primary) hypertension; E66.8 Other obesity; Z68.41 Body mass index [BMI] 40.0-44.9, adult
CPT/HCPCS: 36415; 71046-TC-FY; 80053; 80061; 82550; 82553; 83690; 83721; 83735; 84443; 84484; 85025; 85610; 85730; 93005; 93010; 93306-TC; 99285-25; G0378; U0003

== ENCOUNTER 2022-05-26 18:26 | Emergency (ER) | payer OTHER ==
[2022-05-26 18:52] VITALS: BP 174/96; PULSE 78; RESP 18; TEMP 98.7; BMI 43.7
[2022-05-26] MEDS ORDERED: LIDOCAINE 5% TOPICAL PATCH TP ONE (19:40)
[2022-05-26] MEDS ORDERED: KETOROLAC TROMETHAMINE 15 MG/ML VIAL IVPUSH ONE (19:40)
[2022-05-26] MEDS ORDERED: LIDOCAINE 5% TOPICAL PATCH ONE (20:40)
[2022-05-26] MEDS ORDERED: KETOROLAC TROMETHAMINE 15 MG/ML VIAL ONE (20:40)
[2022-05-26 21:19] LABS: BASO % 0.9 % (0-2.0); EOS % 2.3 % (0-4.5); HEMATOCRIT 47.1 % (35.4-49); HEMOGLOBIN 15.7 GM/dL (11.7-16.9); LYMPH % 38.2 % (8-40); MCH 28.9 pg (25.7-33.7); MCHC 33.3 g/dl (32.0-35.9); MEAN CELL VOLUME 86.9 fl (80-96); MEAN PLT VOLUME 9.4 fl (7.5-11.1); MONO % 7.8 % (3.8-10.2); NEUT % 50.8 % (42.8-82.8); PLATELET COUNT 184 10^3/uL (134-434); RBC 5.42 M/mm3 (4.00-5.60); RDW 14.9 % (11.9-15.9); WHITE BLOOD COUNT 9.1 K/mm3 (4.0-10.0)
[2022-05-26 21:24] LABS: ALBUMIN 3.2 g/dl (3.4-5.0); BLOOD UREA NITROGEN 17.3 mg/dL (7-18)
[2022-05-26 21:25] LABS: INR 0.97 (0.83-1.09); PROTHROMBIN TIME (PATIENT) 11.2 SEC (9.7-13.0)
[2022-05-26 21:27] LABS: CREATININE 1.5 mg/dL (0.55-1.3)
[2022-05-26 21:29] LABS: BILIRUBIN,TOTAL 0.2 mg/dL (0.2-1); TOT PROT 6.5 g/dl (6.4-8.2)
[2022-05-26] MEDS ORDERED: POTASSIUM CHLORIDE TABS 20 MEQ TABLET.ER (FP) PO ONE ×2 (21:42→22:00)
[2022-05-26 22:10] LABS: N-TERMINAL BNP 467.4 pg/ml (5-125)
[2022-05-26 22:11] LABS: MAGNESIUM 1.7 mg/dL (1.8-2.4)
[2022-05-26] MEDS ORDERED: MAGNESIUM SULF 50% (8.12 MEQ/2 ML-1 GM VIAL) IVPB ONE (22:13)
[2022-05-26] MEDS ORDERED: MAGNESIUM SULFATE IN WATER 2 GM/50 ML IVPB IVPB ONE (22:45)
[2022-05-26] MEDS ORDERED: ASPIRIN 81 MG CHEWABLE TABLETS PO ONE (23:02)
[2022-05-26] MEDS ORDERED: ASPIRIN 325 MG ENTERIC COATED TABLET (FP) ONE (23:17)
[2022-05-27] MEDS ORDERED: LIDOCAINE PATCH REMOVAL MC SCH (08:00)
== END 2022-05-26 23:31 | disposition left against medical advice (07) ==
LOC: JER 18:26
PROC: 3E033GC Introduction of Other Therapeutic Substance into Peripheral Vein, Percutaneous Approach (ICD-10-PCS; principal; 2022-05-26)
DX: R07.1 Chest pain on breathing (principal); R06.02 Shortness of breath
CPT/HCPCS: 0241U-QW; 36415; 71046-TC-FY; 71250-TC; 76604; 76705-TC; 80053; 83735; 83880; 84484; 85025; 85610; 85730; 86850; 86900; 86901; 93005; 93010; 93308; 99285-25

== ENCOUNTER 2022-06-25 20:02 | Inpatient (IN) | payer OTHER ==
[2022-06-25 20:07] VITALS: BMI 45.1
[2022-06-25] MEDS ORDERED: FAMOTIDINE 20 MG/50 ML IVPB 20 MG/50 ML MG IVPB ONE (20:54)
[2022-06-25] MEDS ORDERED: methylPREDNISolone NA SUCC 125 MG/2 ML VIAL IVPUSH ONE (20:54)
[2022-06-25] MEDS ORDERED: EPINEPHrine 1:1,000 0.3 MG/0.3 ML SYR IM ONE (20:56)
[2022-06-25] MEDS ORDERED: ANAPHYLAXIS KIT ONE (20:57)
[2022-06-25] MEDS ORDERED: methylPREDNISolone NA SUCC 125 MG/2 ML VIAL ONE (21:02)
[2022-06-25 21:35] LABS: BASO % 1.3 % (0-2.0); EOS % 1.4 % (0-4.5); HEMATOCRIT 49.4 % (35.4-49); MCH 28.1 pg (25.7-33.7); MCHC 32.4 g/dl (32.0-35.9); MEAN CELL VOLUME 86.8 fl (80-96); MEAN PLT VOLUME 9.2 fl (7.5-11.1); MONO % 3.9 % (3.8-10.2); NEUT % 56.4 % (42.8-82.8); PLATELET COUNT 249 10^3/uL (134-434); RBC 5.69 M/mm3 (4.00-5.60); RDW 14.4 % (11.9-15.9); WHITE BLOOD COUNT 9.5 K/mm3 (4.0-10.0)
[2022-06-25 22:02] LABS: ALBUMIN 3.3 g/dl (3.4-5.0); BLOOD UREA NITROGEN 19.3 mg/dL (7-18); CALCIUM 8.5 mg/dL (8.5-10.1)
[2022-06-25 22:05] LABS: CREATININE 1.4 mg/dL (0.55-1.3)
[2022-06-25 22:07] LABS: BILIRUBIN,TOTAL 0.4 mg/dL (0.2-1); TOT PROT 6.7 g/dl (6.4-8.2)
[2022-06-25] MEDS ORDERED: LACTATED RINGERS SOLUTION 1000 ML INFUS.BAG IV ONE (23:46)
[2022-06-26] MEDS ORDERED: METOPROLOL TARTRATE 5 MG/5 ML VIAL IVPUSH ONE (00:32)
[2022-06-26] MEDS ORDERED: MONTELUKAST NA 10 MG TABLET PO STA (00:34)
[2022-06-26 07:58] LABS: HEMOGLOBIN 16.9 GM/dL (11.7-16.9); MCH 28.3 pg (25.7-33.7); MCHC 32.4 g/dl (32.0-35.9); MEAN CELL VOLUME 87.4 fl (80-96); MEAN PLT VOLUME 9.1 fl (7.5-11.1); PLATELET COUNT 256 10^3/uL (134-434); RBC 5.95 M/mm3 (4.00-5.60); RDW 14.2 % (11.9-15.9); WHITE BLOOD COUNT 8.5 K/mm3 (4.0-10.0)
[2022-06-26 08:15] LABS: CALCIUM 8.9 mg/dL (8.5-10.1)
[2022-06-26 08:16] LABS: BLOOD UREA NITROGEN 17.8 mg/dL (7-18); MAGNESIUM 2.1 mg/dL (1.8-2.4)
[2022-06-26 08:19] LABS: CREATININE 1.3 mg/dL (0.55-1.3); PHOSPHOROUS 3.1 mg/dL (2.5-4.9)
[2022-06-26] MEDS: methylPREDNISolone NA SUCC 40 MG/1 ML VIAL IVPUSH SCH (10:02)
[2022-06-26] MEDS: FAMOTIDINE 20 MG/50 ML IVPB 20 MG/50 ML MG IVPB SCH ×2 (10:02→21:35)
[2022-06-26] MEDS ORDERED: CARVEDILOL 12.5 MG TABLET (FP) PO STA (17:15)
[2022-06-26] MEDS ORDERED: LOSARTAN 50MG/HCTZ 12.5MG 1 TAB PO STA (17:16)
[2022-06-26] MEDS: MONTELUKAST NA 10 MG TABLET PO SCH (21:36)
[2022-06-27] MEDS ORDERED: LOSARTAN 50MG/HCTZ 12.5MG 1 TAB PO SCH (10:00)
[2022-06-27] MEDS: methylPREDNISolone NA SUCC 40 MG/1 ML VIAL IVPUSH SCH (10:36)
[2022-06-27] MEDS: FAMOTIDINE 20 MG/50 ML IVPB 20 MG/50 ML MG IVPB SCH ×2 (10:36→21:36)
[2022-06-27] MEDS: CARVEDILOL 12.5 MG TABLET (FP) PO SCH ×2 (12:29→21:36)
[2022-06-27] MEDS: ENOXAPARIN NA (PORCINE) 40 MG/0.4 ML DISP.SYRIN SQ SCH (12:30)
[2022-06-27] MEDS: DEXAMETHASONE SOD PHOSPHATE 10 MG/1 ML VIAL IVPUSH SCH (18:42)
[2022-06-27] MEDS: MONTELUKAST NA 10 MG TABLET PO SCH (21:36)
[2022-06-27] MEDS ORDERED: hydrALAZINE HCL 20 MG/ML VIAL IVPB ONE (23:45)
[2022-06-28] MEDS: DEXAMETHASONE SOD PHOSPHATE 10 MG/1 ML VIAL IVPUSH SCH ×2 (02:21→10:10)
[2022-06-28] MEDS ORDERED: hydrALAZINE HCL 20 MG/ML VIAL IVPB ONE (03:41)
[2022-06-28 07:20] VITALS: RESP 20
[2022-06-28] MEDS ORDERED: FAMOTIDINE 20 MG/50 ML IVPB 20 MG/50 ML MG IVPB SCH (10:00)
[2022-06-28] MEDS: ENOXAPARIN NA (PORCINE) 40 MG/0.4 ML DISP.SYRIN SQ SCH (10:13)
[2022-06-28] MEDS: CARVEDILOL 12.5 MG TABLET (FP) PO SCH (10:18)
[2022-06-28] MEDS ORDERED: amLODIPine BESYLATE 10 MG TABLET (FP) PO ONE (10:24)
[2022-06-28] MEDS ORDERED: HYDROCHLOROTHIAZIDE 25 MG TABLET (FP) PO ONE (10:24)
[2022-06-28 15:38] VITALS: BP 162/99; PULSE 76; TEMP 98.7
[2022-06-28] MEDS ORDERED: MONTELUKAST NA 10 MG TABLET PO SCH (22:00)
== END 2022-06-28 16:40 | disposition home or self-care (01) | DRG 811 ==
LOC: JER 20:02 → JICU 23:00 → J8W 06-26 22:07
PROVIDERS: ADMIT Internal Medicine Pulmonary Disease; ATTEND Internal Medicine
DX: T78.3XXA Angioneurotic edema, initial encounter (principal); I10 Essential (primary) hypertension; E78.5 Hyperlipidemia, unspecified; R21 Rash and other nonspecific skin eruption; T46.5X5A Adverse effect of other antihypertensive drugs, initial encounter; Y92.89 Other specified places as the place of occurrence of the external cause; E66.9 Obesity, unspecified; Z68.41 Body mass index [BMI] 40.0-44.9, adult
CPT/HCPCS: 0241U-QW; 36415; 80048; 80053; 83735; 84100; 85025; 85027; 99291; J0171; J1100